=== PATIENT | male | born 1950 | race Caucasian/White ===

== ENCOUNTER → 2020-02-10 | Day surgery (SDC) | payer BC ==
[~2020-02-10] MED LIST: Ketamine 200 MG/20 ML MDV IV ONE; Phenylephrine 1% 10 MG/ML SDV IV ONE; Propofol 200 MG/20 ML SDV IV ONE; fentaNYL 100 MCG/2 ML SDV IV ONE
[2020-02-10] MEDS: Lactated Ringers 1,000 ML IV SCH (06:16)
[2020-02-10 07:46] VITALS: PULSE 78
[2020-02-10 08:05] VITALS: BP 99/63
--- NOTE | 2020-02-10 08:45 | OR ---
DATE OF OPERATION: 02/10/2020 PREOPERATIVE DIAGNOSIS: HISTORY OF POLYPS. POSTOPERATIVE DIAGNOSIS: HISTORY OF POLYPS. SURGEON: Girish Chatterjee MD PROCEDURE: FULL-LENGTH COLONOSCOPY WITH SNARE POLYPECTOMY X1. ANESTHESIA: MAC. COMPLICATIONS: None. SPECIMEN: Large villous adenoma, splenic flexure. FINDINGS: 1. Full-length colonoscopy. 2. Marginal bowel prep, especially left-sided. 3. 1 cm villous adenoma, splenic flexure. RECOMMENDATIONS: Followup colonoscopy in 3 years pending path report. INDICATIONS: The patient has a history of polyps removed in the past. He is due for a followup colonoscopy for that indication. DESCRIPTION OF PROCEDURE: The patient was prepped and draped, placed in a left lateral decubitus position. A lubricated Olympus colonoscope was inserted and with relative ease advanced to the cecum. The patient's prep, especially in the left and late transverse colon was very poor with a lot of stool and some heavier particulate matter, but we were able to get over to the cecal pouch, irrigated thoroughly, and we were able to visualize the valve and appendiceal orifice. Upon withdrawal, no gross abnormalities could be seen in the cecum, ascending, or transverse colon. There were definitely areas where we could not visualize due to the amount of stool present. Just past the splenic flexure in the immediate descending colon, the patient had a villous lesion right along the haustral fold that kind of double lobed on each side. We were able to remove it with 2 snares in 2 separate pieces and suctioned into polyp trap without any complication. The rest of the descending colon was benign. Most of the sigmoid could be visualized; however, there were a few pockets of large amounts of stool with a lot of particulate matter that cannot be seen and the rectal vault essentially was filled with stool, and scope kept plugging, it could not retroflex in the rectal vault and the most of the rectum could not be visualized. Air was suctioned as best as possible and the scope removed without complication. The patient was stable in the recovery room. CODY/RASHI /[id number]
== END ==
LOC: CC.SDS 06:46
PROVIDERS: ATTEND Family Medicine
DX: Z12.11 Encounter for screening for malignant neoplasm of colon (principal); D12.3 Benign neoplasm of transverse colon; N40.0 Benign prostatic hyperplasia without lower urinary tract symptoms; I48.91 Unspecified atrial fibrillation; R97.20 Elevated prostate specific antigen [PSA]; L98.9 Disorder of the skin and subcutaneous tissue, unspecified; E11.9 Type 2 diabetes mellitus without complications; Z86.010 Personal history of colon polyps; Z88.1 Allergy status to other antibiotic agents; Z79.84 Long term (current) use of oral hypoglycemic drugs; Z79.01 Long term (current) use of anticoagulants; Z98.890 Other specified postprocedural states
CPT/HCPCS: 00812; J2370; J2704; J3010; J7120

== ENCOUNTER → 2023-01-30 | Day surgery (SDC) | payer MEDICARE, BC ==
[~2023-01-30] MED LIST changes: -Ketamine 200 MG/20 ML MDV IV ONE; +Ketamine 200 MG/20 ML MDV ONE; +Metoprolol Tartrate 5 MG/5 ML SDV ONE; -Phenylephrine 1% 10 MG/ML SDV IV ONE; +Phenylephrine 1% 10 MG/ML SDV ONE; -Propofol 200 MG/20 ML SDV IV ONE; +Propofol 200 MG/20 ML SDV ONE; -fentaNYL 100 MCG/2 ML SDV IV ONE; +fentaNYL 50 MCG/ML SDV ONE
[2023-01-30] MEDS: Lactated Ringers 1,000 ML IV SCH (07:48)
[2023-01-30 10:49] VITALS: BP 108/75; PULSE 93
== END ==
LOC: CC.SDS 06:54
PROVIDERS: ATTEND Family Medicine
DX: Z12.11 Encounter for screening for malignant neoplasm of colon (principal); D12.0 Benign neoplasm of cecum; D12.2 Benign neoplasm of ascending colon; D12.3 Benign neoplasm of transverse colon; D12.8 Benign neoplasm of rectum; M10.9 Gout, unspecified; E78.5 Hyperlipidemia, unspecified; M17.9 Osteoarthritis of knee, unspecified; E34.9 Endocrine disorder, unspecified; K42.9 Umbilical hernia without obstruction or gangrene; N40.0 Benign prostatic hyperplasia without lower urinary tract symptoms; E11.9 Type 2 diabetes mellitus without complications; I48.91 Unspecified atrial fibrillation; Z88.8 Allergy status to other drugs, medicaments and biological substances; Z88.1 Allergy status to other antibiotic agents; Z79.01 Long term (current) use of anticoagulants; Z79.84 Long term (current) use of oral hypoglycemic drugs; Z79.899 Other long term (current) drug therapy
CPT/HCPCS: 00811; 88305; J2370; J2704; J3010; J3490; J7120

== ENCOUNTER 2024-11-23 06:33 | Emergency (ER) | payer MEDICARE, BC ==
[2024-11-23] MEDS: Tranexamic Acid 1,000 MG/10 ML Vial TOP ONE (07:09)
[2024-11-23 07:12] VITALS: BP 134/70; PULSE 87
== END 2024-11-23 07:46 | disposition home or self-care (01) ==
LOC: CC.ED 06:33
DX: K91.840 Postprocedural hemorrhage of a digestive system organ or structure following a digestive system procedure (principal); Z88.1 Allergy status to other antibiotic agents; Z79.899 Other long term (current) drug therapy; Z79.01 Long term (current) use of anticoagulants; Z79.84 Long term (current) use of oral hypoglycemic drugs
CPT/HCPCS: 99283